=== PATIENT | female | born 2000 | race Caucasian/White ===

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

== ENCOUNTER → 2018-01-21 13:38 | Outpatient (CLI) | payer MEDICAID ==
[2016-12-26 05:29] VITALS: BMI 25.4
[~2018-01-21 13:38] MED LIST changes: +HYDROCODON-ACE1 EAC7 PO; +NORMODYNE / TR100 MG PO
[2018-01-21 13:50] LABS: APPEARANCE HAZY (CLEAR); BILIRUBIN NEGATIVE (NEGATIVE); COLOR DK YELLOW (YELLOW); GLUCOSE NEGATIVE (NEGATIVE); KETONE LARGE mg/dL (NEGATIVE); NITRITE NEGATIVE (NEGATIVE); PROTEIN TRACE mg/dL (NEGATIVE); UROBILINOGEN NORMAL (NORMAL)
[2018-01-21 13:52] LABS: BACTERIA MODERATE /hpf (NONE SEEN); MUCUS >1+ /lpf (NONE SEEN); RED CELLS - URINE OCC /hpf (0-5); WHITE CELLS - URINE 0-5 /hpf (0-5)
== END | disposition home or self-care (01) ==
LOC: D.LDO 13:38
PROVIDERS: Obstetrics & Gynecology
DX: O21.9 Vomiting of pregnancy, unspecified (principal); Z3A.33 33 weeks gestation of pregnancy; R19.7 Diarrhea, unspecified

== ENCOUNTER → 2018-02-08 10:07 | Outpatient (CLI) | payer MEDICAID ==
[2016-12-26 05:29] VITALS: BMI 25.4
[2018-02-09 16:25] LABS: PROTEIN - URINE 171.6 mg/dL (0.0-11.9)
== END | disposition home or self-care (01) ==
LOC: D.LDO 10:07
PROVIDERS: Obstetrics & Gynecology
DX: O36.5930 Maternal care for other known or suspected poor fetal growth, third trimester, not applicable or unspecified (principal); Z3A.36 36 weeks gestation of pregnancy

== ENCOUNTER → 2018-02-08 22:42 | Outpatient (CLI) | payer MEDICAID ==
[2016-12-26 05:29] VITALS: BMI 25.4
== END | disposition home or self-care (01) ==
LOC: D.LDO 22:42
DX: O26.893 Other specified pregnancy related conditions, third trimester (principal); Z3A.36 36 weeks gestation of pregnancy; M54.5 Low back pain

== ENCOUNTER 2018-02-15 15:44 | Inpatient (IN) | payer MEDICAID ==
[~2018-02-15] VITALS: Ht 152.4 cm; Wt 62.1 kg
[2018-02-15 13:55] LABS: HEMATOCRIT 36.5 % (36.0-48.0); HEMOGLOBIN 12.1 g/dL (12-16); MCH 26.6 pg (26.0-34.0); MCHC 33.2 g/dL (31.0-37.0); MCV 80.2 fL (80.0-100.0); MEAN PLATELET VOLUME 10.3 fL (7.4-10.4); RBC 4.55 10x6/uL (4.00-5.40); RDW 13.5 % (11.5-14.5); WBC 14.1 10x3/uL (4.8-10.8)
[2018-02-15 14:37] VITALS: BP 137/81; Ht 152.4 cm; Wt 62.1 kg
[~2018-02-15 15:44] MED LIST changes: -HYDROCODON-ACE1 EAC7 PO; -NORMODYNE / TR100 MG PO
[2018-02-15 19:49] LABS: ALBUMIN 2.3 g/dL (3.4-5.0); ALKALINE PHOSPHATASE 214 U/L (46-116); ALT (SGPT) 15 U/L (10-68); BILIRUBIN - TOTAL 0.35 mg/dL (0.2-1.3); CALC OSMOLALITY 276 mosm/kg (275-300); CALCIUM 8.5 mg/dL (8.5-10.1); CARBON DIOXIDE 21.5 mmol/L (21.0-32.0); CHLORIDE - SERUM 105 mmol/L (98-107); CREATININE - SERUM 0.7 mg/dL (0.6-1.3); POTASSIUM - SERUM 3.7 mmol/L (3.5-5.1); PROTEIN - SERUM 6.7 g/dL (6.4-8.2); SODIUM 140 mmol/L (136-145); UREA NITROGEN 12 mg/dL (7-18); eGFR NON AFRICAN AMERICAN > 90 mL/min (90-120)
[2018-02-15 19:58] LABS: GLUCOSE 64 mg/dL (74-106)
[2018-02-16] VITALS (13 sets, daily range): BP systolic 131–153; BP diastolic 81–99
[2018-02-16 06:14] LABS: RAPID PLASMA REAGIN Non Reactive (Non Reactive)
[2018-02-17] VITALS (13 sets, daily range): BP systolic 125–184; BP diastolic 70–97
[2018-02-17 03:05] LABS: BASOPHILS 0.1 % (0-2); EOSINOPHILS 0.6 % (0-7); HEMATOCRIT 33.4 % (36.0-48.0); IMMATURE GRANULOCYTES 0.2 % (0-5); LYMPHOCYTES 21.2 % (15-50); MCH 26.1 pg (26.0-34.0); MCHC 32.9 g/dL (31.0-37.0); MCV 79.3 fL (80.0-100.0); MEAN PLATELET VOLUME 9.8 fL (7.4-10.4); MONOCYTES 7.3 % (2-11); NEUTROPHILS 70.6 % (40-80); PLATELET COUNT 293 10x3/uL (130-400); RBC 4.21 10x6/uL (4.00-5.40); RDW 13.9 % (11.5-14.5); WBC 13.6 10x3/uL (4.8-10.8)
[2018-02-18 02:46] VITALS: BP 138/86
[2018-02-18 07:42] VITALS: BP 167/99
[2018-02-18 08:36] VITALS: BP 135/81
[2018-02-18 11:07] VITALS: BP 186/94
[2018-02-18 13:21] VITALS: BP 140/83
[2018-02-18] MEDS ORDERED: IBUPROFEN600 MG PO (14:18)
[2018-02-18] MEDS ORDERED: HYDROCODON-ACE1 EAC7 PO (14:18)
[2018-02-18] MEDS ORDERED: NORMODYNE / TR100 MG PO (14:18)
== END 2018-02-18 14:40 | disposition home or self-care (01) | DRG 775 ==
LOC: D.LDO 15:44 → D.LD 15:46
PROVIDERS: Obstetrics & Gynecology
PROC: 10E0XZZ Delivery of Products of Conception, External Approach (ICD-10-PCS; principal; 2018-02-16)
PROC: 0HQ9XZZ Repair Perineum Skin, External Approach (ICD-10-PCS; 2018-02-16)
DX: O14.04 Mild to moderate pre-eclampsia, complicating childbirth (principal); Z3A.37 37 weeks gestation of pregnancy; Z37.0 Single live birth; O70.0 First degree perineal laceration during delivery; O26.893 Other specified pregnancy related conditions, third trimester; Z67.91 Unspecified blood type, Rh negative; O36.5930 Maternal care for other known or suspected poor fetal growth, third trimester, not applicable or unspecified

== ENCOUNTER 2021-05-04 20:31 | Observation (INO) | payer OTHER ==
[~2021-05-04] VITALS: Ht 152.4 cm; Wt 51.7 kg
[~2021-05-04 20:31] MED LIST changes: +HYDROCODON-ACE1 EAC7 PO; +NORMODYNE / TR100 MG PO
[2021-05-04] MEDS ORDERED: BACTRIM DS TAB1 EAC1 PO (20:45)
--- NOTE | 2021-05-04 21:16 | NUR ---
PATIENT TO ULTRASOUND
[2021-05-04 22:12] LABS: BASOPHILS 0.2 % (0-2); EOSINOPHILS 0 % (0-7); HEMATOCRIT 29.7 % (36.0-48.0); HEMOGLOBIN 10.1 g/dL (12-16); LYMPHOCYTES 5.1 % (15-50); MCH 27.4 pg (26.0-34.0); MCHC 33.9 g/dL (31.0-37.0); MCV 80.9 fL (80.0-100.0); MEAN PLATELET VOLUME 7.5 fL (7.4-10.4); MONOCYTES 7.7 % (2-11); RBC 3.67 10x6/uL (4.00-5.40); RDW 14.6 % (11.5-14.5); WBC 11.7 10x3/uL (4.8-10.8)
[2021-05-04 22:19] LABS: CALC OSMOLALITY 263 mosm/kg (275-300); CALCIUM 8.6 mg/dL (8.5-10.1); CARBON DIOXIDE 18.5 mmol/L (21.0-32.0); CHLORIDE - SERUM 100 mmol/L (98-107); CREATININE - SERUM 0.7 mg/dL (0.6-1.3); POTASSIUM - SERUM 3.4 mmol/L (3.5-5.1); SODIUM 133 mmol/L (136-145); UREA NITROGEN 7 mg/dL (7-18); eGFR NON AFRICAN AMERICAN > 90 mL/min (90-120)
[2021-05-04 22:24] LABS: GLUCOSE 107 mg/dL (74-106)
[2021-05-04 22:41] LABS: BACTERIA FEW HPF (<MOD); BILIRUBIN NEGATIVE (NEGATIVE); KETONE 4+ mg/dL (< 1+); NITRITE NEGATIVE (NEGATIVE); PH 5.5 (5.0-8.0); SQUAMOUS EPITHELIAL 4 HPF (0-4); UROBILINOGEN NORMAL mg/dL (< 2); WHITE CELLS - URINE 28 HPF (0-4)
[2021-05-04 22:46] LABS: ALBUMIN 4.3 g/dL (3.4-5.0); ALKALINE PHOSPHATASE 56 U/L (30-120); ALT (SGPT) 11 U/L (10-68); BILIRUBIN - TOTAL 0.36 mg/dL (0.2-1.3); HCG - QUANTITATIVE (MATERNAL) 85728 mIU/mL; MAGNESIUM - SERUM 1.7 mg/dL (1.8-2.4); PROTEIN - SERUM 7.1 g/dL (6.4-8.2)
[2021-05-04 22:57] LABS: PLATELET COUNT 194 10x3/uL (130-400)
[2021-05-05 00:59] VITALS: BP 98/57; Ht 152.4 cm; Wt 51.7 kg
--- NOTE | 2021-05-05 02:11 | NUR ---
notified dr zapien of pt arrival and need for orders; states pt to be admitted as outpatient status, may have regular diet, and plans for d/c in am if no further problems on rounds.
--- NOTE | 2021-05-05 02:12 | NUR ---
SEE [facility] FOR FURTHER NOTES AND ASSESSMENTS.
--- NOTE | 2021-05-05 07:13 | NUR ---
REPORT GIVEN TO Giovana ECKERT RN; PT SLEEPING.
[2021-05-05 07:50] VITALS: BP 95/55
--- NOTE | 2021-05-05 07:50 | NUR ---
SHIFT ASSESSMENT COMPLETED PER FLOWSHEET, VSS, PT RESTING. STATES SHE HAS A HEADACHE AND HER LOWER BACK ACHES, RATES PAIN 2/10, NO MEDICATION REQUESTED AT THIS TIME. BREAKFAST ON SIDE TABLE BUT REQUESTS TO SLEEP LONGER BEFORE EATING BREAKFAST. UP TO BATHROOM, VOIDED 200 CC OF LIGHT YELLOW URINE WITHOUT ODER. PT BACK TO BED TO REST.
[2021-05-05 12:05] LABS: BILIRUBIN NEGATIVE (NEGATIVE); KETONE NEGATIVE mg/dL (< 1+); NITRITE NEGATIVE (NEGATIVE); PH 7.5 (5.0-8.0); UROBILINOGEN NORMAL mg/dL (< 2)
[2021-05-05 12:11] LABS: BACTERIA FEW HPF (<MOD); SQUAMOUS EPITHELIAL 1 HPF (0-4); WHITE CELLS - URINE 4 HPF (0-4)
--- NOTE | 2021-05-05 13:24 | NUR ---
DR ZHONG GAVE ORDERS FOR PATIENT TO BE DISCHARGED. STATED HE WILL PLACE ORDERS. SCRIPT GIVEN FOR PATIENT TO TAKE.
--- NOTE | 2021-05-05 15:00 | NUR ---
PT DISCHARGE INSTRUCTIONS GIVEN PT VERBALIZES UNDERSTANDING. PERSCRIPTIONS GIVEN AND ALL PERSONAL ITEMS TAKEN. IV REMOVED BANDADE IN PLACE. NO FURTHER QUESTIONS. PT AMBULATES OFF UNIT WITH FRIEND.
== END 2021-05-05 15:00 | disposition home or self-care (01) ==
LOC: D.ER 20:31 → D.LD 23:28 → OBSVTIME 23:28 → D.LD 05-05 15:00
PROVIDERS: Family Medicine; ADMIT Obstetrics & Gynecology; ATTEND Obstetrics & Gynecology
DX: O20.0 Threatened abortion (principal); Z3A.11 11 weeks gestation of pregnancy; R11.10 Vomiting, unspecified; G43.909 Migraine, unspecified, not intractable, without status migrainosus